=== PATIENT | male | born 1955 | race African-American/Black ===

== ENCOUNTER 2021-10-06 02:46 | Emergency (ER) | payer OTHER ==
[2021-10-06] MEDS ORDERED: Lidocaine 1% 20 ML MDV ONE (03:08)
[2021-10-06] MEDS ORDERED: Boostrix 0.5 ML (Tdap) VIAL ONE (03:26)
[2021-10-06] MEDS ORDERED: CEFAZOLIN 1 GM VIAL ONE (04:01)
[2021-10-06] MEDS ORDERED: Sodium Chloride 0.9% 100 ML ONE (04:01)
[2021-10-06] MEDS ORDERED: Fentanyl 100 MCG/2 ML VIAL ONE (04:01)
== END 2021-10-06 04:50 | disposition short-term general hospital (02) ==
LOC: NAV ERS 02:46
DX: S52.22 Transverse fracture of shaft of ulna (principal); I10 Essential (primary) hypertension; D64.9 Anemia, unspecified; M10.9 Gout, unspecified; Y00.XXXA Assault by blunt object, initial encounter; Z23 Encounter for immunization
CPT/HCPCS: 90471; 90715; 96374; J0690; J3010; J3490

== ENCOUNTER 2022-03-17 20:35 | Emergency (ER) | payer OTHER ==
[2022-03-17 21:42] LABS: Hemoglobin 6.9 g/dL (14.0-18.0); Mean Corpuscular HGB CONC 30.9 g/dL (32.0-36.0); Mean Corpuscular Hemoglobin 23.1 pg (27.0-31.0); Mean Corpuscular Volume 74.8 fl (78.0-98.0); Mean Platelet Volume 7.2 fL (7.4-10.4); Platelet Count 842 thou/uL (130-400); RBC Distribution Width 17.5 % (11.5-14.5); Red Blood Cell (RBC) Count 2.98 mill/uL (4.70-6.10)
[2022-03-17 21:55] LABS: ALT (SGPT) 16 U/L (8-55); AST (SGOT) 24 U/L (5-34); Alkaline Phosphatase 137 U/L (40-110); Anion Gap 19 mmol/L (10-20); BUN (Urea Nitrogen) 26 mg/dL (8.4-25.7); Bilirubin, Total 1.1 mg/dL (0.2-1.2); Calc. Creatinine Clearance 0 mL/min (70-130); Calcium 9.1 mg/dL (7.8-10.44); Carbon Dioxide 20 mmol/L (23-31); Chloride 107 mmol/L (98-107); Estimated GFR 54; Globulin 4.3 g/dL (2.4-3.5); Glucose 83 mg/dL (80-115); Lipase 32 U/L (8-78); Potassium 3.9 mmol/L (3.5-5.1); Protein, Total 7.3 g/dL (5.8-8.1); Sodium 142 mmol/L (136-145)
[2022-03-17 22:29] LABS: Hypochromia SLIGHT = 6-15 cells (100X) (0-5/hpf); Lymphocytes 14 % (21-51); MDiff Complete? YES; Microcytosis SLIGHT = 6-15 cells (100X) (0-5/hpf); Monocytes 3 % (0-10); Neutrophil 82 % (42-75); Platelet Morphology Comment Appears Increased; Poikilocytosis SLIGHT = 6-15 cells (100X) (0-5/hpf)
[2022-03-17] MEDS ORDERED: Ketorolac Tromethamine 30 MG/ML VIAL ONE (22:46)
[2022-03-18 00:04] LABS: SARS-CoV-2 NAA Rapid Test Not Detected (NotDetected)
== END 2022-03-17 23:25 | disposition short-term general hospital (02) ==
LOC: NAV ERS 20:35
DX: R10.11 Right upper quadrant pain (principal); M10.9 Gout, unspecified; I10 Essential (primary) hypertension; D64.9 Anemia, unspecified; Z79.899 Other long term (current) drug therapy
CPT/HCPCS: 80053; 83690; 84484; 85025; 93005; 96374; J1885; U0002

== ENCOUNTER 2022-05-20 17:19 | Emergency (ER) | payer OTHER | END 2022-05-20 17:55 | LOC: NAV ERS 17:19 | DX: H65.93 Unspecified nonsuppurative otitis media, bilateral (principal); F20.0 Paranoid schizophrenia; I10 Essential (primary) hypertension | CPT/HCPCS: 99284 ==